=== PATIENT | male | born 1970 | race Caucasian/White ===

== ENCOUNTER 2018-06-22 12:59 | Inpatient (IN) | payer OTHER ==
[2018-06-22] MEDS ORDERED: IPRATROPIUM-ALBUTEROL 3 ML NEB INHALATION STA (13:22)
[2018-06-22] MEDS ORDERED: methylPREDNISolone SOD SUCCI 125 MG/2 ML VIAL IV STA (13:23)
[2018-06-22 13:50] LABS: Basophils # (A) 0.1 k/uL (0-0.2); Basophils % (A) 1 %; Eosinophils # (A) 0.1 k/uL (0-0.7); Eosinophils % (A) 1 %; HCT 47.1 % (39.0-53.0); HGB 14.9 gm/dL (13.0-17.5); Lymphocytes # (A) 1.3 k/uL (1.0-4.8); Lymphocytes % (A) 14 %; MCH 26.7 pg (25.0-35.0); MCHC 31.7 g/dL (31.0-37.0); MCV 84.3 fL (80.0-100.0); Mean Platelet Volume 8.3; Monocytes # (A) 0.6 k/uL (0-1.0); Monocytes % (A) 7 %; Neutrophils # (A) 7.2 k/uL (1.3-7.7); Neutrophils % (A) 75 %; Platelet Count 214 k/uL (150-450); RBC 5.59 m/uL (4.30-5.90); RDW 13.6 % (11.5-15.5); WBC 9.7 k/uL (3.8-10.6)
[2018-06-22 13:57] LABS: ALT 45 U/L (21-72); AST 30 U/L (17-59); Albumin 3.8 g/dL (3.5-5.0); Alkaline Phosphatase 70 U/L (38-126); Anion Gap 7 mmol/L; Blood Urea Nitrogen 13 mg/dL (9-20); Calcium 9.4 mg/dL (8.4-10.2); Carbon Dioxide 33 mmol/L (22-30); Chloride 99 mmol/L (98-107); Glucose 110 mg/dL (74-99); Potassium 4.8 mmol/L (3.5-5.1); Sodium 139 mmol/L (137-145); Total Bilirubin 0.5 mg/dL (0.2-1.3); Total Protein 7.3 g/dL (6.3-8.2)
--- NOTE | 2018-06-22 14:14 | XR ---
EXAMINATION TYPE: XR chest 2V DATE OF EXAM: 06/22/2018 COMPARISON: 06/21/2018 INDICATION: Pain TECHNIQUE: Frontal and lateral views of the chest are obtained. FINDINGS: The heart size is normal. The pulmonary vasculature is normal. The lungs are clear. IMPRESSION: 1. No acute pulmonary process.
[2018-06-22] MEDS ORDERED: ALBUTEROL NEBULIZED 2.5 MG/3 ML INHALATION STA (14:16)
--- NOTE | 2018-06-22 14:59 | ED ---
General Adult HPI - General Chief complaint: Shortness of Breath Stated complaint: TONY Time Seen by Provider: 06/22/18 13:13 Source: patient, RN notes reviewed, old records reviewed Mode of arrival: ambulatory Limitations: no limitations - History of Present Illness Initial comments: 48-year-old male patient past medical history of COPD presents to ED with 5 days of nonproductive cough, shortness of breath, patient states this feels as if he is having a COPD exacerbation. Patient has any pain. Patient denies any chest pain. Patient denies any other complaints. Patient reports that he was evaluated by his flat folding machine operator recommended admission to hospital.Patient denies any other complaints. Systemic: Pt denies fatigue, myalgia, fever/chills, rash. Pt denies weakness, night sweats, weight loss. Neuro: Pt denies headache, visual disturbances, syncope or pre-syncope. HEENT: Pt denies ocular discharge or irritation, otalgia, rhinorrhea, pharyn gitis or notable lymphadenopathy. Cardiopulmonary: Pt denies chest pain, heart palpitations, dyspnea on exertion. Abdominal/GI: Pt denies abdominal pain, n/v/d. : Pt denies dysuria, burning w/ urination, frequency/urgency. Denies new onset urinary or bowel incontinence. MSK: Pt denies myalgia, loss of strength or function in extremities. Neuro: Pt denies new onset weakness, paresthesias. - Related Data Home Medications Medication Instructions Recorded Confirmed Acetaminophen-Codeine 300-30mg 1 tab PO HS 06/22/18 06/22/18 [Tylenol w/codeine #3] Omeprazole [PriLOSEC] 20 mg PO DAILY 06/22/18 06/22/18 Allergies Allergy/AdvReac Type Severity Reaction Status Date / Time No Known Allergies Allergy Verified 06/22/18 13:46 Review of Systems ROS Statement: Those systems with pertinent positive or pertinent negative responses have been documented in the HPI. ROS Other: All systems not noted in ROS Statement are negative. Past Medical History Past Medical History: Asthma, COPD History of Any Multi-Drug Resistant Organisms: MRSA Date of last positivie culture/infection: 2015 MDRO Source:: right elbow Past Surgical History: Orthopedic Surgery Additional Past Surgical History / Comment(s): right elbow left leg Past Psychological History: No Psychological Hx Reported Smoking Status: Current every day smoker Past Alcohol Use History: Abuse, Daily Past Drug Use History: None Reported - Past Family History Father Additional Family Medical History / Comment(s): Father of alcoholism at the age of 42 yrs. Mother Family Medical History: COPD Additional Family Medical History / Comment(s): Mother of COPD at the age of 64yrs. General Exam - General Exam Comments Initial Comments: Constitutional: NAD, AOX3, Pt has pleasant affect. HEENT: NC/AT, trachea midline, neck supple, no lymphadenopathy. Posterior pharynx non erythematous, without exudates. External ears appear normal, without discharge. Mucous membranes moist. Eyes PERRLA, EOM intact. There is no scleral icterus. No pallor noted. Cardiopulmonary: RRR, no murmurs, rubs or gallops, no JVD noted. Wheezing noted in anterior and posterior velez. No peripheral edema. Abdominal exam: Abdomen soft and non-distended. Abdomen non-tender to palpation in all 4 quadrants. Bowel sounds active in LLQ. No hepatosplenomegaly. No ecchymosis Neuro: CN II-XII grossly intact. No nuchal rigidity. MSK: No posterior calf tenderness bilaterally, homans sign negative bilaterally. Posterior tibialis and radial pulse +2 bilaterally. Sensation intact in upper and lower extremities. Full active ROM in upper and lower extremities, 5/5 stregnth. Limitations: no limitations Course Vital Signs 06/22/18 06/22/18 06/22/18 13:02 13:30 13:37 Temperature 98.4 F Pulse Rate 107 H 104 H Respiratory 20 22 Rate Blood Pressure 128/81 125/85 O2 Sat by Pulse 91 L 91 L Oximetry 06/22/18 06/22/18 06/22/18 13:43 14:00 14:30 Temperature Pulse Rate 112 H Respiratory Rate Blood Pressure 114/84 139/93 O2 Sat by Pulse 90 L Oximetry 06/22/18 06/22/18 06/22/18 15:00 15:11 15:32 Temperature Pulse Rate 108 H 108 H 108 H Respiratory 22 Rate Blood Pressure 126/82 O2 Sat by Pulse 96 Oximetry Medical Decision Making - Medical Decision Making 48-year-old male patient past medical history of COPD presents to ED with 5 days of nonproductive cough, shortness of breath, patient states this feels as if he is having a COPD exacerbation. Patient has any pain. Patient denies any chest pain. Patient denies any other complaints. Patient reports that he was evaluated by his flat folding machine operator recommended admission to hospital.Patient denies any other complaints. Patient vital signs initially displayed tachypnea and ta chycardia. Improved after breathing treatment, steroids. Patient chest x-ray did not display acute process. CBC nonimpressive. CMP displayed mild retention of CO2. Patient will be admitted for COPD exacerbation. Pt placed in CIWA protocol due to history of etoh abuse. Case dsicussed with Dr. San. - Lab Data Result diagrams: 06/22/18 13:35 06/22/18 13:35 Lab Results 06/22/18 06/22/18 Range/Units 13:35 13:35 WBC 9.7 (3.8-10.6) k/uL RBC 5.59 (4.30-5.90) m/uL Hgb 14.9 (13.0-17.5) gm/dL Hct 47.1 (39.0-53.0) % MCV 84.3 (80.0-100.0) fL MCH 26.7 (25.0-35.0) pg MCHC 31.7 (31.0-37.0) g/dL RDW 13.6 (11.5-15.5) % Plt Count 214 (150-450) k/uL Neutrophils % 75 % Lymphocytes % 14 % Monocytes % 7 % Eosinophils % 1 % Basophils % 1 % Neutrophils # 7.2 (1.3-7.7) k/uL Lymphocytes # 1.3 (1.0-4.8) k/uL Monocytes # 0.6 (0-1.0) k/uL Eosinophils # 0.1 (0-0.7) k/uL Basophils # 0.1 (0-0.2) k/uL Sodium 139 (137-145) mmol/L Potassium 4.8 (3.5-5.1) mmol/L Chloride 99 (98-107) mmol/L Carbon Dioxide 33 H (22-30) mmol/L Anion Gap 7 mmol/L BUN 13 (9-20) mg/dL Creatinine 0.56 L (0.66-1.25) mg/dL Est GFR (CKD-EPI)AfAm >90 (>60 ml/min/1.73 sqM) Est GFR (CKD-EPI)NonAf >90 (>60 ml/min/1.73 sqM) Glucose 110 H (74-99) mg/dL Calcium 9.4 (8.4-10.2) mg/dL Total Bilirubin 0.5 (0.2-1.3) mg/dL AST 30 (17-59) U/L ALT 45 (21-72) U/L Alkaline Phosphatase 70 (38-126) U/L Total Protein 7.3 (6.3-8.2) g/dL Albumin 3.8 (3.5-5.0) g/dL Disposition Clinical Impression: COPD exacerbation Disposition: ADMITTED IP TO THIS HOSP Condition: Stable Is patient prescribed a controlled substance at d/c from ED?: No
[2018-06-22] MEDS ORDERED: IPRATROPIUM-ALBUTEROL 3 ML NEB INHALATION PRN (15:09)
[2018-06-22] MEDS ORDERED: LORazepam 2 MG/ML INJ IV PRN ×3 (16:31)
[2018-06-22] MEDS ORDERED: THIAMINE 100 MG/ML 2 ML VIAL IM STA (16:34)
[2018-06-22] MEDS ORDERED: THIAMINE 100 MG TAB PO SCH (17:00)
[2018-06-22] MEDS: methylPREDNISolone SOD SUCCI 125 MG/2 ML VIAL IV SCH (17:09)
[2018-06-22] MEDS: BUDESONIDE 0.5 MG/2 ML NEBU INHALATION SCH (19:38)
[2018-06-22] MEDS: IPRATROPIUM-ALBUTEROL 3 ML NEB INHALATION SCH (19:38)
[2018-06-22] MEDS: DOXYCYCLINE 100 MG CAP PO SCH (20:46)
[2018-06-22] MEDS: PANTOPRAZOLE 40 MG TABLET PO SCH (20:47)
[2018-06-22] MEDS ORDERED: Acetaminophen-Codeine 300-30mg TAB PO SCH (21:00)
--- NOTE | 2018-06-22 23:26 | P.HPIM ---
History of Present Illness H&P Date: 06/22/18 Chief Complaint: Shortness of breath Patient is a 48-year-old male with a known history of COPD, ongoing nicotine addiction came to ER with the complaints of worsening shortness of breath. Patient has been having cough without any sputum production and shortness of breath for the past 5 days and has been worsening. Patient was seen by Dr. Conte in the clinic yesterday and was recommended to go to ER if symptoms gets worse. Patient has been having cough with whitish sputum production. Denied any fever or chills. No nausea vomiting or abdominal pain. Patient was having diminished breath sounds bilaterally and diffuse wheezing on admission. Denied any recent illnesses. Chest x-ray showed no acute cardio pulmonary process. Review of Systems Constitutional: Patient denies any fever or chills . No generalized weakness or weight loss. Abdomen: Patient denied nausea vomiting and diarrhea and abdominal pain. Cardiovascular: Patient denies any chest pain or short of breath no palpitations. Respiratory: Cough with whitish sputum production and shortness of breath Neurologic: Patient denied any numbness or tingling headache. Musculoskeletal: Patient denies any complaints of joint swelling or deformity. Skin: Negative Psychiatric: Negative Endocrine: No heat or cold intolerance. No recent weight gain. Genitourinary: No dysuria or hematuria. All other 14 point ROS negative except the above Past Medical History Past Medical History: Asthma, COPD History of Any Multi-Drug Resistant Organisms: MRSA Date of last positivie culture/infection: 2015 MDRO Source:: right elbow Past Surgical History: Orthopedic Surgery Additional Past Surgical History / Comment(s): right elbow left leg Past Anesthesia/Blood Transfusion Reactions: No Reported Reaction Past Psychological History: No Psychological Hx Reported Smoking Status: Current every day smoker Past Alcohol Use History: Abuse, Daily Past Drug Use History: None Reported - Past Family History Father Additional Family Medical History / Comment(s): Father of alcoholism at the age of 42 yrs. Mother Family Medical History: COPD Additional Family Medical History / Comment(s): Mother of COPD at the age of 64yrs. Medications and Allergies Home Medications Medication Instructions Recorded Confirmed Type Acetaminophen-Codeine 300-30mg 1 tab PO HS 06/22/18 06/22/18 History [Tylenol w/codeine #3] Omeprazole [PriLOSEC] 20 mg PO DAILY 06/22/18 06/22/18 History Allergies Allergy/AdvReac Type Severity Reaction Status Date / Time No Known Allergies Allergy Verified 06/22/18 13:46 Physical Exam Vitals: Vital Signs Temp Pulse Pulse Pulse Resp BP BP 06/22/18 21:00 97.9 F 111 H 20 157/93 06/22/18 19:57 100 06/22/18 19:38 100 06/22/18 16:43 98.8 F 90 18 129/81 06/22/18 15:32 108 H 22 126/82 06/22/18 15:11 108 H 06/22/18 15:00 108 H 06/22/18 14:30 139/93 06/22/18 14:00 114/84 06/22/18 13:43 112 H 06/22/18 13:37 22 06/22/18 13:30 104 H 125/85 06/22/18 13:02 98.4 F 107 H 20 128/81 Pulse Ox 06/22/18 21:00 94 L 06/22/18 19:57 06/22/18 19:38 06/22/18 16:43 93 L 06/22/18 15:32 96 06/22/18 15:11 06/22/18 15:00 06/22/18 14:30 90 L 06/22/18 14:00 06/22/18 13:43 06/22/18 13:37 06/22/18 13:30 91 L 06/22/18 13:02 91 L Intake and Output 06/22/18 06/22/18 06/22/18 06:59 14:59 22:59 Other: Weight 102.512 kg PHYSICAL EXAMINATION: Patient is lying in the bed comfortably, mild respiratory distress, awake alert and oriented.. HEENT: Normocephalic. Neck is supple. Pupils reactive. Nostrils clear. Oral cavity is moist. Ears reveal no drainage. Neck reveals no JVD, carotid bruits, or thyromegaly. CHEST EXAMINATION: Trachea is central. Symmetrical expansion. Bilateral diminished air entry and diffuse wheezing. CARDIAC: Normal S1, S2 with no gallops. No murmurs ABDOMEN: Soft. Bowel sounds normal. No organomegaly. No abdominal bruits. Extremities: reveal no edema. No clubbing or cyanosis Neurologically awake, alert, oriented x3 with well-coordinated movements. No focal deficits noted Skin: No rash or skin lesions. Psychiatric: Coperative. Nonsuicidal Musculoskeletal: No joint swelling or deformity. Normal range of motion. Results CBC & Chem 7: 06/22/18 13:35 06/22/18 13:35 Labs: Abnormal Lab Results - Last 24 Hours (Table) 06/22/18 Range/Units 13:35 Carbon Dioxide 33 H (22-30) mmol/L Creatinine 0.56 L (0.66-1.25) mg/dL Glucose 110 H (74-99) mg/dL Thrombosis Risk Factor Assmnt - DVT/VTE Prophylaxis DVT/VTE Prophylaxis: Pharmacologic Prophylaxis ordered - Choose All That Apply Any of the Below Risk Factors Present?: Yes Each Factor Represents 1 point: Abnormal pulmonary function (COPD), Age 41-60 years, Obesity (BMI >25) Other Risk Factors: No Other congenital or acquired thrombophilia - If yes, enter type in comment: No Thrombosis Risk Factor Assessment Total Risk Factor Score: 3 Thrombosis Risk Factor Assessment Level: Moderate Risk Assessment and Plan Assessment: Acute COPD exacerbation Acute tracheobronchitis Advanced COPD with FEV1 24% of predicted. Current ongoing nicotine addiction Obesity with BMI 31.5 DVT prophylaxis with heparin subcu Plan: Patient continued on IV steroids, DuoNeb's, Pulmicort and Perforomist inhalation. Continue with antibiotics in the form of doxycycline. Pulmonary was consulted. We will follow up closely. Oxygen therapy as needed. Further recommendations based on clinical course. Smoking cessation has been counseled extensively. Time with Patient: Greater than 30
[2018-06-23] MEDS: methylPREDNISolone SOD SUCCI 125 MG/2 ML VIAL IV SCH ×3 (00:31→11:21)
[2018-06-23] MEDS: HEPARIN SODIUM,PORCINE 5,000 UNIT/ML 1 ML VIAL SQ SCH ×3 (00:31→13:01)
[2018-06-23] MEDS: IPRATROPIUM-ALBUTEROL 3 ML NEB INHALATION SCH ×5 (00:36→15:53)
[2018-06-23 06:11] VITALS: RESP 24
[2018-06-23] MEDS: BUDESONIDE 0.5 MG/2 ML NEBU INHALATION SCH (07:25)
[2018-06-23] MEDS ORDERED: FORMOTEROL FUMARATE 20 MCG/2 ML NEBU INHALATION SCH (08:00)
[2018-06-23] MEDS: DOXYCYCLINE 100 MG CAP PO SCH (08:02)
[2018-06-23] MEDS: PANTOPRAZOLE 40 MG TABLET PO SCH (08:02)
[2018-06-23] MEDS ORDERED: THIAMINE 100 MG TAB PO SCH (12:00)
[2018-06-23 12:32] VITALS: BP 150/81; TEMP 98
--- NOTE | 2018-06-23 12:53 | P.CNPUL ---
History of Present Illness Consult date: 06/23/18 Requesting physician: Bobbi Bucio Reason for consult: dyspnea, COPD Chief complaint: Shortness of breath, cough, congestion History of present illness: This is a 48-year-old gentleman who follows with Dr. Lorenzo as his primary care physician. He has a history of chronic and ongoing tobacco dependence, daily alcohol use, gastroesophageal reflux disease. He was diagnosed with COPD back in March 2017 at that time a FEV1 value is 49% of predicted. He did not stay on any maintenance medications or inhalers. He has continued to smoke. He works in the [employer] business is an exposed to a lot of dust. He was seen by Dr. Cat in our office on 06/21/2018 with complaints of increasing shortness of breath cough and congestion. He also had a CAT scan done of the chest at [facility] and was told he has a spot on his lung and that was the point of the appointment. He did not have a CD with him at that time. Dr. Cat was unable to review the films. He did a repeat pulmonary function test and the patient's FEV1 value is down to 24% of predicted. Chest x-ray s howed no acute abnormalities. The patient was significantly bronchospastic and wheezy. They did give him a Depo-Medrol IM injection and request to go to the emergency room. Before Dr. Cat could set him up for oxygen and a nebulizer the patient walked out of our clinic. He did present here to the emergency room on 06/22/2018 around 1 PM. He was quite short of breath with a loose nonproduct nito cough. His pulse oximeter was 91% at rest. He was tachycardic. Afebrile. Chest x-ray again showed no acute pulmonary process. White count 9.7. Hemoglobin 14.9. Creatinine 0.56. He was admitted for his COPD exacerbation. He is seen today in consultation on the regular medical floor. He is awake and alert. He is in mild respiratory distress. Still bronchospastic and wheezing. Currently requiring requiring 4 L/m per nasal cannula to maintain O2 saturations in the low 90s. He was taken for a walk and did desaturate to 81% on room air with exercise. He's been initiated and DuoNeb inhalations every 4 hours and when necessary, Pulmicort and Perforomist inhalations every 12 hours, IV Solu- Medrol and empiric antibiotics in the form of doxycycline. He was also placed on the CIWA protocol based on his daily alcohol use. The patient is quite adamant he will be leaving the hospital today even if it is AGAINST MEDICAL ADVICE. Review of Systems REVIEW OF SYSTEMS: CONSTITUTIONAL: Denies any recent significant weight loss or weight gain. EYES: Denies change in vision. EARS, NOSE, MOUTH, THROAT: Denies headaches, denies sore throat. CARDIOVASCULAR: Denies chest pain, palpitations or syncopal episodes. RESPIRATORY: Positive for shortness of breath, cough, congestion no hemoptysis. GASTROINTESTINAL: Denies change in appetite, denies abdominal pain, some abdominal fullness GENITOURINARY: Denies hematuria, denies infections. MUSKULOSKELETAL: Denies pain, denies swelling. INTEGUMENTARY: Denies rash, denies eczema. NEUROLOGICAL: Denies recent memory loss, no recent seizure activity. PSYCHIATRIC: Denies anxiety, denies depression. HEMATOLOGIC/LYMPHATIC: Denies anemia, denies enlarged lymph nodes. Past Medical History Past Medical History: Asthma, COPD History of Any Multi-Drug Resistant Organisms: MRSA Date of last positivie culture/infection: 2015 MDRO Source:: right elbow Past Surgical History: Orthopedic Surgery Additional Past Surgical History / Comment(s): right elbow left leg Past Anesthesia/Blood Transfusion Reactions: No Reported Reaction Past Psychological History: No Psychological Hx Reported Smoking Status: Current every day smoker Past Alcohol Use History: Abuse, Daily Past Drug Use History: None Reported - Past Family History Father Additional Family Medical History / Comment(s): Father of alcoholism at the age of 42 yrs. Mother Family Medical History: COPD Additional Family Medical History / Comment(s): Mother of COPD at the age of 64yrs. Medications and Allergies Home Medications Medication Instructions Recorded Confirmed Type Acetaminophen-Codeine 300-30mg 1 tab PO HS 06/22/18 06/22/18 History [Tylenol w/codeine #3] Omeprazole [PriLOSEC] 20 mg PO DAILY 06/22/18 06/22/18 History Allergies Allergy/AdvReac Type Severity Reaction Status Date / Time No Known Allergies Allergy Verified 06/22/18 13:46 Physical Exam Vitals: Vital Signs Temp Pulse Pulse Pulse Resp BP BP 06/23/18 12:00 98 06/23/18 09:12 06/23/18 07:48 104 H 06/23/18 07:36 100 06/23/18 07:35 100 06/23/18 07:25 98 06/23/18 05:20 97.6 F 120 H 24 06/22/18 21:00 97.9 F 111 H 20 157/93 06/22/18 19:57 100 06/22/18 19:38 100 06/22/18 16:43 98.8 F 90 18 129/81 06/22/18 15:32 108 H 22 126/82 06/22/18 15:11 108 H 06/22/18 15:00 108 H 06/22/18 14:30 139/93 06/22/18 14:00 114/84 06/22/18 13:43 112 H 06/22/18 13:37 22 06/22/18 13:30 104 H 125/85 06/22/18 13:02 98.4 F 107 H 20 128/81 BP Pulse Ox Pulse Ox Pulse Ox Pulse Ox 06/23/18 12:00 06/23/18 09:12 94 L 85 L 81 L 06/23/18 07:48 06/23/18 07:36 06/23/18 07:35 06/23/18 07:25 06/23/18 05:20 119/82 91 L 06/22/18 21:00 94 L 06/22/18 19:57 06/22/18 19:38 06/22/18 16:43 93 L 06/22/18 15:32 96 06/22/18 15:11 06/22/18 15:00 06/22/18 14:30 90 L 06/22/18 14:00 06/22/18 13:43 06/22/18 13:37 06/22/18 13:30 91 L 06/22/18 13:02 91 L Intake and Output 06/22/18 06/23/18 06/23/18 22:59 06:59 14:59 Intake Total 590 Balance 590 Intake: Oral 590 Other: Voiding Method Toilet Toilet # Voids 1 1 GENERAL EXAM: Alert, fairly comfortable in mild respiratory distress. On 4 L nasal cannula. HEAD: Normocephalic. EYES: Normal reaction of pupils, equal size. NOSE: Clear with pink turbinates. THROAT: No erythema or exudates. NECK: No masses, no JVD. CHEST: No chest wall deformity. LUNGS: Equal air entry with tight bilateral end expiratory wheeze, diminished. CVS: S1 and S2 normal with no audible murmur, regular rhythm. ABDOMEN: No hepatosplenomegaly, normal bowel sounds, no guarding or rigidity. SPINE: No scoliosis or deformity SKIN: No rashes CENTRAL NERVOUS SYSTEM: No focal deficits, tone is normal in all 4 extremities. EXTREMITIES: There is no peripheral edema. No clubbing, no cyanosis. Peripheral pulses are intact. Results - Laboratory Findings CBC and BMP: 06/22/18 13:35 06/22/18 13:35 Abnormal lab findings: Abnormal Labs 06/22/18 13:35 Carbon Dioxide 33 H Creatinine 0.56 L Glucose 110 H - Diagnostic Findings Chest x-ray: image reviewed (No acute pulmonary process) Assessment and Plan Assessment: Impression: #1 Acute hypoxic respiratory failure secondary to an acute exacerbation of severe chronic obstructive pulmonary disease with FEV1 value 24%. #2 Chronic and ongoing tobacco dependence. #3 History of medication noncompliance. #4 Daily alcohol use. #5 Gastroesophageal reflux disease.. Plan: The patient was seen and evaluated by Dr. Bliss. Chest x-ray and labs were reviewed. Patient is being treated for severe COPD exacerbation. He is quite adamant about leaving the hospital today. If so, from the pulmonary standpoint he would need to leave AGAINST MEDICAL ADVICE. He will require home oxygen as he desaturates into the low 80s on room air with minimal activity. He would also benefit from a nebulizer with DuoNeb inhalations 4 times a day and when necessary. Symbicort 1604.5 g inhaler 2 inhalations twice daily. Prednisone burst and taper starting at 40 mg daily 4 days. Complete a course of empiric antibiotics. He is educated regarding the importance of complete smoking cessation. NicoDerm patches been ordered. He is encouraged to follow up with Dr. Cat next week or call sooner with any recurrence of symptoms or other questions or concerns. Again the patient has not been cleared for discharge from the pulmonary standpoint. We have spent much time encouraging him to stay and complete his treatment. I, the cosigning physician, performed a history & physical examination of the patient. Lungs sounds with tight bilateral end expiratory wheeze, diminished. Maintaining good O2 saturations in the 90s on 4 L/m per nasal cannula. I discu ssed the assessment and plan of care with my nurse practitioner, Christina Alfred. I attest to the above note as dictated by her. Time with Patient: Greater than 30
[2018-06-23] MEDS ORDERED: NICOTINE 14MG/24HR PATCH TRANSDERM SCH (13:00)
[2018-06-23 15:56] VITALS: PULSE 100
--- NOTE | 2018-07-04 10:12 | P.DS ---
Providers Date of admission: 06/23/18 09:43 Expected date of discharge: 06/23/18 Attending physician: Bobbi Bucio Consults: 06/22/18 15:09 Consult Physician Stat Consulting Provider: Lili Cat Consult Reason/Comments: copd exacerbation Do you want consulting provider notified?: Yes Primary care physician: [facility] Course: Discharge diagnosis Acute COPD exacerbation Acute tracheobronchitis Advanced COPD with FEV1 24% of predicted. Current ongoing nicotine addiction Obesity with BMI 31.5 DVT prophylaxis with heparin subcu Hospital course Patient is a 48-year-old male with a known history of COPD, ongoing nicotine addiction came to ER with the complaints of worsening shortness of breath. Patient has been having cough without any sputum production and shortness of breath for the past 5 days and has been worsening. Patient was seen by Dr. Conte in the clinic yesterday and was recommended to go to ER if symptoms gets worse. Patient has been having cough with whitish sputum production. Denied any fever or chills. No nausea vomiting or abdominal pain. Patient was having diminished breath sounds bilaterally and diffuse wheezing on admission. Denied any recent illnesses. Chest x-ray showed no acute cardio pulmonary process. Patient was continued on IV steroids, DuoNeb's, Pulmicort and Perforomist inhalation. Continue with antibiotics in the form of doxycycline. Pulmonary has seen the patient.. We will follow up closely. Oxygen therapy as needed. Smoking cessation has been counseled extensively. Patient did improve clini lynn. PHYSICAL EXAMINATION: Patient is lying in the bed comfortably, no acute distress, awake alert and oriented.. HEENT: Normocephalic. Neck is supple. Pupils reactive. Nostrils clear. Oral cavi ty is moist. Ears reveal no drainage. Neck reveals no JVD, carotid bruits, or thyromegaly. CHEST EXAMINATION: Trachea is central. Symmetrical expansion. Lung velez clear to auscultation and percussion. CARDIAC: Normal S1, S2 with no gallops. No murmurs ABDOMEN: Soft. Bowel sounds normal. No organomegaly. No abdominal bruits. Extremities: reveal no edema. No clubbing or cyanosis Neurologically awake, alert, oriented x3 with well-coordinated movements. No focal deficits noted Skin: No rash or skin lesions. Psychiatric: Coperative. Nonsuicidal Musculoskeletal: No joint swelling or deformity. Normal range of motion. Discharge vitals reviewed. Patient Condition at Discharge: Stable Plan - Discharge Summary Discharge Rx Participant: No New Discharge Prescriptions: New Doxycycline [Vibramycin] 100 mg PO BID 4 Days #8 cap Ipratropium-Albuterol Nebulize [Duoneb 0.5 mg-3 mg/3 ml Soln] 3 ml INHALATION RT-Q4H PRN #120 ampul.neb PRN Reason: Shortness Of Breath Or Wheezing predniSONE See Taper PO DIRECTED #34 tab Budesonide-Formot 160-4.5 Mcg [Symbicort 160-4.5 Mcg Inhaler] 2 puff INHALATION BID #1 inhaler Continue Omeprazole [PriLOSEC] 20 mg PO DAILY Acetaminophen-Codeine 300-30mg [Tylenol w/codeine #3] 1 tab PO HS Discharge Medication List Acetaminophen-Codeine 300-30mg [Tylenol w/codeine #3] 1 tab PO HS 06/22/18 [History] Omeprazole [PriLOSEC] 20 mg PO DAILY 06/22/18 [History] Budesonide-Formot 160-4.5 Mcg [Symbicort 160-4.5 Mcg Inhaler] 2 puff INHALATION BID #1 inhaler 06/23/18 [Rx] Doxycycline [Vibramycin] 100 mg PO BID 4 Days #8 cap 06/23/18 [Rx] Ipratropium-Albuterol Nebulize [Duoneb 0.5 mg-3 mg/3 ml Soln] 3 ml INHALATION RT-Q4H PRN #120 ampul.neb 06/23/18 [Rx] predniSONE See Taper PO DIRECTED #34 tab 06/23/18 [Rx] Follow up Appointment(s)/Referral(s): Eric Lorenzo MD [Primary Care Provider] - 1-2 days Lili Cat MD [STAFF PHYSICIAN] - 1 Week Patient Instructions/Handouts: Using Oxygen at Home (DC), COPD (Chronic Obstructive Pulmonary Disease) (DC) Discharge Disposition: Left Against Medical Advice
== END 2018-06-23 16:20 | disposition left against medical advice (07) | DRG 190 ==
LOC: EC 12:59 → 3NMEDONC 15:14 → OBSVTOIN 06-23 09:43
PROVIDERS: ADMIT Internal Medicine; ATTEND Internal Medicine
DX: J44.1 Chronic obstructive pulmonary disease with (acute) exacerbation (principal); J96.01 Acute respiratory failure with hypoxia; F17.200 Nicotine dependence, unspecified, uncomplicated; R00.0 Tachycardia, unspecified; F10.10 Alcohol abuse, uncomplicated; E66.9 Obesity, unspecified; J44.0 Chronic obstructive pulmonary disease with (acute) lower respiratory infection; K21.9 Gastro-esophageal reflux disease without esophagitis; J20.9 Acute bronchitis, unspecified; Z71.6 Tobacco abuse counseling; Z68.31 Body mass index [BMI] 31.0-31.9, adult; Z79.899 Other long term (current) drug therapy; Z91.14 Patient's other noncompliance with medication regimen; Z86.14 Personal history of Methicillin resistant Staphylococcus aureus infection; Z82.5 Family history of asthma and other chronic lower respiratory diseases; Z81.1 Family history of alcohol abuse and dependence
CPT/HCPCS: 36415; 71046; 80053; 85025; 94640; 96374; 99285

== ENCOUNTER 2021-08-18 11:53 | Emergency (ER) | payer OTHER ==
[2021-08-18 12:36] VITALS: RESP 20
[2021-08-18] MEDS ORDERED: MORPHINE SULFATE 4 MG/ML SYRINGE IVP STA (15:28)
[2021-08-18 16:11] LABS: Basophils # (A) 0.2 k/uL (0-0.2); Basophils % (A) 1 %; Eosinophils # (A) 0.3 k/uL (0-0.7); Eosinophils % (A) 3 %; HCT 48.8 % (39.0-53.0); HGB 14.7 gm/dL (13.0-17.5); Lymphocytes # (A) 1.5 k/uL (1.0-4.8); Lymphocytes % (A) 13 %; MCV 93.1 fL (80.0-100.0); Monocytes # (A) 0.6 k/uL (0-1.0); Monocytes % (A) 6 %; Neutrophils # (A) 8.4 k/uL (1.3-7.7); Neutrophils % (A) 75 %; Platelet Count 181 k/uL (150-450); RBC 5.24 m/uL (4.30-5.90); RDW 13.6 % (11.5-15.5); WBC 11.2 k/uL (3.8-10.6)
[2021-08-18 16:24] LABS: ALT 29 U/L (4-49); AST 31 U/L (17-59); African American GFR (CKD) >90 (>60 ml/min/1.73 sqM); Alkaline Phosphatase 72 U/L (38-126); Anion Gap 9 mmol/L; Blood Urea Nitrogen 12 mg/dL (9-20); Calcium 9.1 mg/dL (8.4-10.2); Carbon Dioxide 31 mmol/L (22-30); Chloride 95 mmol/L (98-107); Glucose 125 mg/dL (74-99); Non-African American GFR(CKD) >90 (>60 ml/min/1.73 sqM); Sodium 135 mmol/L (137-145); Total Bilirubin 0.5 mg/dL (0.2-1.3); Total Protein 7.1 g/dL (6.3-8.2)
[2021-08-18 16:25] LABS: Partial Thromboplastin Time 22.5 sec (22.0-30.0); Prothrombin Time 10.9 sec (9.0-12.0)
[2021-08-18 16:34] LABS: Potassium 4.2 mmol/L (3.5-5.1)
--- NOTE | 2021-08-18 16:44 | XR ---
EXAMINATION TYPE: XR chest 2V DATE OF EXAM: 08/18/2021 4:06 PM COMPARISON: Multiple radiographs, with the most recent on 06/22/2018 and 06/04/2020 TECHNIQUE: XR chest 2V Frontal and lateral views of the chest. CLINICAL INDICATION:Male, 51 years old with history of Cough/pain; FINDINGS: Lungs/Pleura: Prominent interstitial lung markings are seen scattered throughout the lungs. No eviden ce of focal consolidation, pneumothorax or pleural effusion. Pulmonary vascularity: Unremarkable. Heart/mediastinum: Cardiomediastinal silhouette is unremarkable. Musculoskeletal: No acute osseous pathology. IMPRESSION: Chronic changes without acute pulmonary process. No significant change from prior.
--- NOTE | 2021-08-18 16:55 | XR ---
EXAMINATION TYPE: XR Hip Complete LT DATE OF EXAM: 08/18/2021 COMPARISON: NONE INDICATION: Pain TECHNIQUE: 2 views of the left hip FINDINGS: Osteopenia. Tiny acetabular osteophytosis. Grossly unremarkable left hip joint otherwise. No definite acute fracture line identified. No gross lytic or sclerotic bone lesion. IMPRESSION: As above.
--- NOTE | 2021-08-18 16:57 | XR ---
EXAMINATION TYPE: XR foot complete LT DATE OF EXAM: 08/18/2021 COMPARISON: NONE INDICATION: Pain TECHNIQUE: 3 views of the left foot FINDINGS: Spiral mildly displaced fracture of the diaphysis of the fifth metatarsal bone with proximal medial d isplacement of the distal fracture fragment. No extension of fracture into the articular surface. Osteopenia. No other definite acute fracture line identified. Degenerative changes of the first tarso metatarsal articulation. Soft tissue swelling of the dorsum of the foot. IMPRESSION: Fractured fifth metatarsal bone as described above.
[2021-08-18] MEDS ORDERED: methylPREDNISolone SOD SUCCI 125 MG/2 ML VIAL IV STA (17:54)
[2021-08-18] MEDS ORDERED: FUROSEMIDE 10 MG/ML 4 ML VIAL IV STA (17:57)
[2021-08-18] MEDS: HYDROmorphone 1 MG/ML 1 ML SYRINGE IVP STA ×2 (18:01→18:05)
--- NOTE | 2021-08-18 18:01 | ED ---
General Adult HPI - General Chief complaint: Extremity Problem,Nontraumatic Stated complaint: hip & foot pain Time Seen by Provider: 08/18/21 15:15 Source: patient Mode of arrival: ambulatory Limitations: no limitations - History of Present Illness Initial comments: 51-year-old male with past history of COPD who presents to the emergency department with several complaints. Patient admits to chronic lower extremity swelling for which she is on a diuretic. States that as of recent he has been retaining more fluid in his abdomen and his legs. He also reports that he stubbed the outside of his left foot on the couch over the weekend and has had significant bruising. He is concern for fracture. As he has been unable to ambulate on the left foot he has been compensating and has subsequently caused increased pain in his left hip. He was told 3 years ago that he needed a hip replacement however never followed up with his orthopedic surgeon. He denies any numbness or tingling in his foot. No chest pain or shortness of breath. Denies any nausea or vomiting. Has not been taking anything for pain at home. No other alleviating, precipitating modifying factors - Related Data Home Medications Medication Instructions Recorded Confirmed Acetaminophen-Codeine 300-30mg 1 tab PO HS 06/22/18 06/22/18 [Tylenol w/codeine #3] Omeprazole [PriLOSEC] 20 mg PO DAILY 06/22/18 06/22/18 Previous Rx's Medication Instructions Recorded Budesonide-Formot 160-4.5 Mcg 2 puff INHALATION BID #1 inhaler 06/23/18 [Symbicort 160-4.5 Mcg Inhaler] Doxycycline [Vibramycin] 100 mg PO BID 4 Days #8 cap 06/23/18 Ipratropium-Albuterol Nebulize 3 ml INHALATION RT-Q4H PRN #120 06/23/18 [Duoneb 0.5 mg-3 mg/3 ml Soln] ampul.neb predniSONE See Taper PO DIRECTED #34 tab 06/23/18 HYDROcodone/APAP 10-325MG [[place] 1 tab PO Q6H PRN #12 tab 08/18/21 10-325] predniSONE [Deltasone] 20 mg PO BID #10 tab 08/18/21 Allergies Allergy/AdvReac Type Severity Reaction Status Date / Time No Known Allergies Allergy Verified 08/18/21 12:36 Review of Systems ROS Statement: Those systems with pertinent positive or pertinent negative responses have been documented in the HPI. ROS Other: All systems not noted in ROS Statement are negative. Past Medical History Past Medical History: Asthma, COPD History of Any Multi-Drug Resistant Organisms: MRSA Date of last positivie culture/infection: 2015 MDRO Source:: right elbow Past Surgical History: Orthopedic Surgery Additional Past Surgical History / Comment(s): right elbow left leg Past Anesthesia/Blood Transfusion Reactions: No Reported Reaction Past Psychological History: No Psychological Hx Reported Smoking Status: Current every day smoker Past Alcohol Use History: Abuse, Daily Past Drug Use History: None Reported - Past Family History Father Additional Family Medical History / Comment(s): Father of alcoholism at the age of 42 yrs. Mother Family Medical History: COPD Additional Family Medical History / Comment(s): Mother of COPD at the age of 64yrs. General Exam Limitations: no limitations General appearance: alert, in no apparent distress Head exam: Present: atraumatic, normocephalic, normal inspection Eye exam: Present: normal appearance, PERRL, EOMI. Absent: scleral icterus, conjunctival injection, periorbital swelling ENT exam: Present: normal exam, mucous membranes moist Neck exam: Present: normal inspection. Absent: tenderness, meningismus, lymphadenopathy Respiratory exam: Present: normal lung sounds bilaterally. Absent: respiratory distress, wheezes, rales, rhonchi, stridor Cardiovascular Exam: Present: regular rate, normal rhythm, normal heart sounds. Absent: systolic murmur, diastolic murmur, rubs, gallop, clicks GI/Abdominal exam: Present: soft, normal bowel sounds. Absent: distended, tenderness, guarding, rebound, rigid Extremities exam: Present: normal inspection, full ROM, tenderness (left hip, left lateral foot. Lateral foot has ecchymosis overlying 5th metatarsal), normal capillary refill, pedal edema (1+). Absent: joint swelling, calf tenderness Back exam: Present: normal inspection Neurological exam: Present: alert, oriented X3, CN II-XII intact Psychiatric exam: Present: normal affect, normal mood Skin exam: Present: warm, dry, intact, normal color. Absent: rash Course Vital Signs 08/18/21 08/18/21 12:33 18:28 Temperature 98.0 F 98.2 F Pulse Rate 111 H 90 Respiratory 20 20 Rate Blood Pressure 128/85 126/77 O2 Sat by Pulse 96 97 Oximetry Procedures - Orthopedic Splinting/Casting Injury #1 Side: left Lower Extremity Injury Location: short leg Lower Extremity Immobilizer: posterior splint, Osvaldo wrap, synthetic pre-padded splint Other Orthopedic Equipment: crutches Medical Decision Making - Medical Decision Making Upon arrival patient was placed into hallway 19. A thorough history and physical exam was performed. IV access established laboratory studies are conducted. X-rays are performed the patient's chest, hip and foot. Review the imaging demonstrates no acute intrathoracic process. No signs of congestive heart failure. X-ray of the left hip demonstrates osteopenia with a tiny acetabular osteophytosis. X-ray of the left foot demonstrates a fifth metatarsal fracture. Patient is placed in a posterior short leg splint. He is given a prescription for [place]. He is also given 125 of Solu-Medrol with additional prednisone called and the pharmacy for his left hip pain. Because of the peripheral swelling I did give the patient 60 mg of Lasix and instructed him to increase his diuretic at home for the next 3 days. He is to follow-up with his primary care doctor. He is additionally given follow-up information for the orthopedic office. He is to not weight bear. He is to rest, ice and elevate the extremity and follow up with the orthopedic office this week for further management. Patient understood this. He is asked to return for any new or worsening symptoms. Patient discharged home in stable condition - Lab Data Result diagrams: 08/18/21 15:53 08/18/21 15:44 Lab Results 08/18/21 08/18/21 08/18/21 Range/Units 15:44 15:44 15:44 WBC (3.8-10.6) k/uL RBC (4.30-5.90) m/uL Hgb (13.0-17.5) gm/dL Hct (39.0-53.0) % MCV (80.0-100.0) fL MCH (25.0-35.0) pg MCHC (31.0-37.0) g/dL RDW (11.5-15.5) % Plt Count (150-450) k/uL MPV Neutrophils % % Lymphocytes % % Monocytes % % Eosinophils % % Basophils % % Neutrophils # (1.3-7.7) k/uL Lymphocytes # (1.0-4.8) k/uL Monocytes # (0-1.0) k/uL Eosinophils # (0-0.7) k/uL Basophils # (0-0.2) k/uL PT (9.0-12.0) sec INR (<1.2) APTT (22.0-30.0) sec Sodium 135 L (137-145) mmol/L Potassium 4.2 (3.5-5.1) mmol/L Chloride 95 L (98-107) mmol/L Carbon Dioxide 31 H (22-30) mmol/L Anion Gap 9 mmol/L BUN 12 (9-20) mg/dL Creatinine 0.55 L (0.66-1.25) mg/dL Est GFR (CKD-EPI)AfAm >90 (>60 ml/min/1.73 sqM) Est GFR (CKD-EPI)NonAf >90 (>60 ml/min/1.73 sqM) Glucose 125 H (74-99) mg/dL Calcium 9.1 (8.4-10.2) mg/dL Total Bilirubin 0.5 (0.2-1.3) mg/dL AST 31 (17-59) U/L ALT 29 (4-49) U/L Alkaline Phosphatase 72 (38-126) U/L Troponin I <0.012 (0.000-0.034) ng/mL NT-Pro-B Natriuret Pep 53 pg/mL Total Protein 7.1 (6.3-8.2) g/dL Albumin 4.0 (3.5-5.0) g/dL 08/18/21 08/18/21 Range/Units 15:53 15:53 WBC 11.2 H (3.8-10.6) k/uL RBC 5.24 (4.30-5.90) m/uL Hgb 14.7 (13.0-17.5) gm/dL Hct 48.8 (39.0-53.0) % MCV 93.1 (80.0-100.0) fL MCH 28.0 (25.0-35.0) pg MCHC 30.0 L (31.0-37.0) g/dL RDW 13.6 (11.5-15.5) % Plt Count 181 (150-450) k/uL MPV 10.0 Neutrophils % 75 % Lymphocytes % 13 % Monocytes % 6 % Eosinophils % 3 % Basophils % 1 % Neutrophils # 8.4 H (1.3-7.7) k/uL Lymphocytes # 1.5 (1.0-4.8) k/uL Monocytes # 0.6 (0-1.0) k/uL Eosinophils # 0.3 (0-0.7) k/uL Basophils # 0.2 (0-0.2) k/uL PT 10.9 (9.0-12.0) sec INR 1.0 (<1.2) APTT 22.5 (22.0-30.0) sec Sodium (137-145) mmol/L Potassium (3.5-5.1) mmol/L Chloride (98-107) mmol/L Carbon Dioxide (22-30) mmol/L Anion Gap mmol/L BUN (9-20) mg/dL Creatinine (0.66-1.25) mg/dL Est GFR (CKD-EPI)AfAm (>60 ml/min/1.73 sqM) Est GFR (CKD-EPI)NonAf (>60 ml/min/1.73 sqM) Glucose (74-99) mg/dL Calcium (8.4-10.2) mg/dL Total Bilirubin (0.2-1.3) mg/dL AST (17-59) U/L ALT (4-49) U/L Alkaline Phosphatase (38-126) U/L Troponin I (0.000-0.034) ng/mL NT-Pro-B Natriuret Pep pg/mL Total Protein (6.3-8.2) g/dL Albumin (3.5-5.0) g/dL Disposition Clinical Impression: Metatarsal fracture, Left hip pain, Peripheral edema Disposition: HOME SELF-CARE Condition: Stable Instructions (If sedation given, give patient instructions): Foot Fracture in Adults (ED) Additional Instructions: Please follow-up with the orthopedic surgeon in 2-4 days. Call to make an appointment. Do not ambulate on the left leg. Rest, ice and elevate the extremity. Place ice to the site for 20 minutes, 6 times a day. Do not get the splint wet or it will fall apart. Keep it on until you see the orthopedic surgeon. Take the pain medications as directed but do not drive. Return to the emergency room for any new or worsening symptoms Prescriptions: predniSONE [Deltasone] 20 mg PO BID #10 tab HYDROcodone/APAP 10-325MG [[place] 10-325] 1 tab PO Q6H PRN #12 tab PRN Reason: pain Is patient prescribed a controlled substance at d/c from ED?: Yes When asked, does pt state using other controlled substances?: No If prescribed controlled substance>3 days was MAPS reviewed?: Prescribed <3 Days Referrals: None,Stated [Primary Care Provider] - 1-2 days Efrain Cardoso DO [Doctor of Osteopathic Medicine] - 1-2 days Time of Disposition: 17:59
[2021-08-18 18:37] VITALS: BP 126/77; PULSE 90; TEMP 98.2
== END 2021-08-18 18:30 | disposition home or self-care (01) ==
LOC: EC 11:53
DX: S92.352A Displaced fracture of fifth metatarsal bone, left foot, initial encounter for closed fracture (principal); M25.522 Pain in left elbow; R60.0 Localized edema; J44.9 Chronic obstructive pulmonary disease, unspecified; F17.200 Nicotine dependence, unspecified, uncomplicated; Z79.51 Long term (current) use of inhaled steroids; Z79.899 Other long term (current) drug therapy; W22.8XXA Striking against or struck by other objects, initial encounter
CPT/HCPCS: 29515 ×2; 96374 ×4; 96375 ×4; 99283 ×2; 36415; 83880; 80053; 84484; 85025; 85610; 85730; 73502; 73630; 71046; J2270; J1940; J2930